=== PATIENT | female | born 1940 | race Caucasian/White ===

== ENCOUNTER 2017-02-08 06:57 | Day surgery (SDC) | payer OTHER ==
[~2017-02-08] VITALS: Ht 167.6 cm; Wt 105.7 kg
[~2017-02-08 06:57] MED LIST: LO-DOSE ASPIRIN81 M2 PO; VALSARTAN320 MG PO
[2017-02-08 07:37] VITALS: BP 150/80
[2017-02-08 14:39] VITALS: BP 171/84
[2017-02-08 15:25] VITALS: BP 170/83
== END 2017-02-08 15:43 | disposition home or self-care (01) ==
LOC: SDC 06:57
DX: C50.111 Malignant neoplasm of central portion of right female breast (principal); Z17.0 Estrogen receptor positive status [ER+]; E78.5 Hyperlipidemia, unspecified; K21.9 Gastro-esophageal reflux disease without esophagitis; I10 Essential (primary) hypertension; I73.9 Peripheral vascular disease, unspecified; R73.09 Other abnormal glucose; L40.9 Psoriasis, unspecified; Z79.82 Long term (current) use of aspirin; Z88.0 Allergy status to penicillin
CPT/HCPCS: 88305; 88307; 88342 TC; J2710; J3010; S0020

== ENCOUNTER 2017-03-29 07:01 | Day surgery (SDC) | payer OTHER ==
[~2017-03-29] VITALS: Ht 167.6 cm; Wt 110.0 kg
[2017-03-29 07:30] VITALS: BP 197/91
[2017-03-29] MEDS ORDERED: TYLENOL REGULA325 MG PO (07:30)
[2017-03-29 17:50] VITALS: BP 147/67
[2017-03-29 19:47] VITALS: BP 174/81
[2017-03-30 00:05] VITALS: BP 137/66
[2017-03-30 03:15] VITALS: BP 152/70
[2017-03-30 03:38] VITALS: BP 140/67
[2017-03-30 07:15] VITALS: BP 110/64
[2017-03-30 11:45] VITALS: BP 112/74
[2017-03-30] MEDS ORDERED: VICODIN 5-3001 EACH PO (12:35)
== END 2017-03-30 14:24 | disposition home or self-care (01) ==
LOC: SDC 07:01 → NUC 09:00 → 2EAST 13:07 → 2SOUTH 13:07 → 2EAST 17:50
DX: C50.811 Malignant neoplasm of overlapping sites of right female breast (principal); E78.5 Hyperlipidemia, unspecified; K21.9 Gastro-esophageal reflux disease without esophagitis; I10 Essential (primary) hypertension; R73.09 Other abnormal glucose; I73.9 Peripheral vascular disease, unspecified; Z83.2 Family history of diseases of the blood and blood-forming organs and certain disorders involving the immune mechanism; Z80.1 Family history of malignant neoplasm of trachea, bronchus and lung; Z79.82 Long term (current) use of aspirin; Z88.0 Allergy status to penicillin; I25.2 Old myocardial infarction
CPT/HCPCS: 78195; 78999; 88305; 88307; 88311; 88331; 88341 TC; 88342 TC; A9541; G0378; J0360; J1100; J1170; J1885; J2250; J2405; J2765; J3010; S0020